=== PATIENT | male | born 1960 | race Caucasian/White ===

== ENCOUNTER 2021-08-25 07:30 | Inpatient (IN) ==
[2021-08-25] MEDS ORDERED: NS 100 ML IV 100 ML ONE (09:41)
[2021-08-25] MEDS ORDERED: ANCEF VIAL 1 GRAM ONE (09:41)
[2021-08-25] MEDS ORDERED: LR 1,000 ML IV 1,000 ML IV ONE (09:41)
[2021-08-25 10:10] VITALS: BMI 26.6
[2021-08-25] MEDS ORDERED: BYFAVO INJ IVP ONE (12:25)
[2021-08-25] MEDS ORDERED: NS 500 ML IV 500 ML IV ONE (12:37)
[2021-08-25] MEDS ORDERED: DIPRIVAN VIAL 20 ML ONE (13:03)
[2021-08-25] MEDS ORDERED: FENTANYL VIAL INJ 250 mcg ONE (13:03)
[2021-08-25] MEDS ORDERED: VERSED ONE (13:04)
[2021-08-25] MEDS ORDERED: ZEMURON 100 MG VIAL ONE (13:05)
[2021-08-25] MEDS ORDERED: ROBINUL ONE (13:06)
[2021-08-25] MEDS ORDERED: NEO-SYNEPHRINE INJ ONE (13:18)
[2021-08-25] MEDS ORDERED: HEPARIN SODIUM IN D5W 25,000 UNITS/500 ML BAG ONE (13:22)
[2021-08-25] MEDS ORDERED: NS 1,000 ML IV 1,000 ML ONE ×2 (13:45→18:19)
[2021-08-25] MEDS ORDERED: LTA KIT LIDOCAINE 4% ONE (13:46)
[2021-08-25] MEDS ORDERED: XYLOCAINE 2 % (PLAIN) ONE (13:46)
[2021-08-25] MEDS ORDERED: ULTANE GAS IN ONE (13:46)
[2021-08-25] MEDS ORDERED: AMIDATE INJ 40 MG VIAL ONE (13:55)
[2021-08-25] MEDS ORDERED: HEPARIN SODIUM INJ 5000 UNITS ONE (14:30)
[2021-08-25] MEDS ORDERED: BRIDION ONE (14:58)
[2021-08-25] MEDS ORDERED: PROTAMINE SULFATE 50 MG VIAL ONE (15:21)
[2021-08-25] MEDS ORDERED: DILAUDID INJ ONE ×3 (16:05→17:23)
--- NOTE | 2021-08-25 16:10 | OR.IMMED ---
IMMEDIATE POST-OP NOTE Immediate Post-Op Note Pre-Op Diagnosis: occluded right ICA, > 70 % stenosis of left ICA Post-Op Diagnosis: same Procedure: left carotid endarterectomy and patch angioplasty Description of Procedure: see operative summary Surgeon/Cafeteria Or Lunchroom Checker: Mile Specimens Removed: comfort Estimated Blood Loss: 250 cc Complications: none Progress Notes: To PACU, neurologically intact , Will be in ICU tonight Condition: Stable Final Diagnosis: as above
[2021-08-25] MEDS ORDERED: NITROSTAT SL PRN (16:13)
[2021-08-25] MEDS ORDERED: DILAUDID INJ IVP PRN ×2 (16:18→16:37)
[2021-08-25] MEDS ORDERED: PERCOCET TAB 5/325 MG PO PRN (16:18)
[2021-08-25] MEDS ORDERED: BARHEMSYS INJ IVP PRN (16:37)
[2021-08-25] MEDS ORDERED: ZOFRAN INJ 4 MG VIAL IVP PRN ×2 (16:37→21:00)
[2021-08-25] MEDS ORDERED: PHENERGAN INJ 25 MG IM PRN (16:37)
[2021-08-25] MEDS ORDERED: BENADRYL INJ 50 MG VIAL IVP PRN (16:37)
[2021-08-25] MEDS ORDERED: REGLAN INJ 10 MG VIAL IVP PRN (16:37)
--- NOTE | 2021-08-25 16:57 | DR.UPDATE ---
H&P Update History and Physical Update: History and Physical reviewed and patient examined. Changes noted: NO Yes with the following:arterial line for carotid endarterectomy H&P Reviewed: Yes Patient was examined?: Yes Procedures (ALL) - Arterial Line Consent obtained: verbal consent Time out performed: Yes Size(gauge): 20 Technique used: guided wire technique Post-procedure: dry sterile dressing placed Patient tolerated procedure: Yes Site: Left, radial
[2021-08-25] MEDS ORDERED: DILAUDID INJ IVP ONE (17:23)
[2021-08-25] MEDS ORDERED: NS 1,000 ML IV 1,000 ML IV ONE (18:20)
[2021-08-25] MEDS ORDERED: DOPAMINE IV PREMIX 400 MG/250 ML 400 MG/250 ML BAG IV PRN (19:19)
[2021-08-25] MEDS ORDERED: DOPAMINE IV PREMIX 400 MG/250 ML 400 MG/250 ML BAG IV ONE (19:21)
[2021-08-25] MEDS: LR 1,000 ML IV 1,000 ML IV SCH (19:25)
[2021-08-25] MEDS: XANAX PO PRN (19:44)
[2021-08-25] MEDS: SOMA TAB 350 MG PO SCH ×2 (20:55→22:20)
[2021-08-25] MEDS: COREG TAB 6.25 MG PO SCH (20:55)
[2021-08-25] MEDS: DESYREL PO SCH ×2 (20:55→22:20)
[2021-08-25] MEDS ORDERED: CRESTOR TAB 10 MG PO SCH (21:00)
[2021-08-25] MEDS: LOVENOX INJ 40 MG SYR SC SCH (21:33)
[2021-08-26] MEDS: LR 1,000 ML IV 1,000 ML IV SCH ×3 (02:40→05:24)
[2021-08-26] MEDS ORDERED: ULTRAM PO PRN (07:45)
[2021-08-26] MEDS ORDERED: ULTRAM ONE (07:49)
[2021-08-26] MEDS: XANAX PO PRN (08:06)
[2021-08-26] MEDS ORDERED: MOBIC TAB 15 MG PO SCH (09:00)
[2021-08-26] MEDS ORDERED: PROTONIX TAB 40 MG PO SCH (09:00)
[2021-08-26] MEDS ORDERED: PLAVIX PO SCH (09:00)
[2021-08-26] MEDS ORDERED: BENICAR TAB 40 MG PO SCH (09:00)
[2021-08-26] MEDS ORDERED: ALDACTONE TAB 25 MG PO SCH (09:00)
[2021-08-26] MEDS ORDERED: ISOSORBIDE MONONITRATE ER 24-HR PO SCH (09:00)
[2021-08-26] MEDS ORDERED: TRICOR TAB 160 MG PO SCH (09:00)
--- NOTE | 2021-08-26 09:32 | W.DIS.FURT ---
Summary of Discharge Discharge Summary of Date Date of Exam: 08/26/21 Admission Date Date of Admission: 08/25/21 Admission Diagnosis Hospital Course: This 61 year old male diagnosed with completely occluded right internal carotid artery and greater than 70% stenosis of the left internal carotid artery. He had a history of a mechanical aortic valve and underwent transition from po Coumadin to Sub-Q Lovenox at home. He underwent uncomplicated left carotid endarterectomy with patch angioplasty. He had some hypotension which responded to IV dopamine drip and is now resolved and off any type of pressure agent. He is neurologically intact . The incision is clean and dry. He will be discharged home on all his usual home medications including Plavix and Coumadin. He will be given Tramadol 50 mg, 1 po q 6 hr PRN pain , #30 for pain. He will f/u with Dr. Treadwell in one week. Vital Signs: Vital Signs (72 hours) 08/25/21 09:53 08/25/21 10:12 08/25/21 16:05 Temperature 97.0 F L 97.5 F L Pulse Rate 59 L 60 Respiratory Rate 18 18 Blood Pressure 138/63 97/55 O2 Sat by Pulse Oximetry 96 96 Oxygen Delivery Method Room Air Room Air Aerosol Face Tent Oxygen Flow Rate FIO2% 08/25/21 16:10 08/25/21 16:15 08/25/21 16:20 Temperature Pulse Rate 60 55 L 55 L Respiratory Rate 20 20 20 Blood Pressure 136/56 151/45 148/64 O2 Sat by Pulse Oximetry 96 96 96 Oxygen Delivery Method Aerosol Face Tent Aerosol Face Tent Aerosol Face Tent Oxygen Flow Rate FIO2% 08/25/21 16:25 08/25/21 16:30 08/25/21 16:08 Temperature Pulse Rate 48 L 50 L Respiratory Rate 20 18 18 Blood Pressure 145/65 168/50 O2 Sat by Pulse Oximetry 96 100 Oxygen Delivery Method Aerosol Face Tent Nasal Cannula Oxygen Flow Rate FIO2% 08/25/21 16:32 08/25/21 16:35 08/25/21 16:40 Temperature Pulse Rate 49 L 51 L Respiratory Rate 18 18 18 Blood Pressure 145/60 166/52 O2 Sat by Pulse Oximetry 100 99 Oxygen Delivery Method Nasal Cannula Nasal Cannula Oxygen Flow Rate FIO2% 08/25/21 17:02 08/25/21 16:51 08/25/21 16:53 Temperature Pulse Rate 48 L Respiratory Rate 18 Blood Pressure 129/63 O2 Sat by Pulse Oximetry Oxygen Delivery Method Oxygen Flow Rate FIO2% 08/25/21 16:53 08/25/21 16:58 08/25/21 16:58 Temperature Pulse Rate 49 L 47 L Respiratory Rate 18 Blood Pressure 174/77 O2 Sat by Pulse Oximetry 100 Oxygen Delivery Method Oxygen Flow Rate FIO2% 08/25/21 17:00 08/25/21 17:00 08/25/21 17:15 Temperature Pulse Rate 49 L Respiratory Rate 22 Blood Pressure 169/72 157/70 O2 Sat by Pulse Oximetry 100 Oxygen Delivery Method Oxygen Flow Rate FIO2% 08/25/21 17:15 08/25/21 17:25 08/25/21 16:50 Temperature Pulse Rate 46 L Respiratory Rate 19 20 Blood Pressure O2 Sat by Pulse Oximetry 100 Oxygen Delivery Method Nasal Cannula Oxygen Flow Rate FIO2% 08/25/21 17:55 08/25/21 17:30 08/25/21 17:31 Temperature Pulse Rate 49 L Respiratory Rate 18 19 Blood Pressure 122/54 O2 Sat by Pulse Oximetry 100 Oxygen Delivery Method Oxygen Flow Rate FIO2% 08/25/21 17:31 08/25/21 17:45 08/25/21 17:46 Temperature Pulse Rate 49 L 41 L Respiratory Rate 28 H 10 L Blood Pressure 103/49 O2 Sat by Pulse Oximetry 100 99 Oxygen Delivery Method Oxygen Flow Rate FIO2% 08/25/21 17:46 08/25/21 18:00 08/25/21 18:00 Temperature Pulse Rate 51 L 44 L Respiratory Rate 11 L 0 L Blood Pressure 89/47 O2 Sat by Pulse Oximetry 100 94 L Oxygen Delivery Method Oxygen Flow Rate FIO2% 08/25/21 18:07 08/25/21 18:07 08/25/21 18:15 Temperature Pulse Rate 53 L Respiratory Rate 16 Blood Pressure 117/55 80/43 O2 Sat by Pulse Oximetry 97 Oxygen Delivery Method Oxygen Flow Rate FIO2% 08/25/21 18:15 08/25/21 18:30 08/25/21 18:30 Temperature Pulse Rate 49 L 51 L Respiratory Rate 10 L 12 Blood Pressure 70/32 O2 Sat by Pulse Oximetry 94 L 94 L Oxygen Delivery Method Oxygen Flow Rate FIO2% 08/25/21 20:43 08/25/21 20:15 08/25/21 20:20 Temperature Pulse Rate 55 L Respiratory Rate 10 L Blood Pressure 103/52 O2 Sat by Pulse Oximetry 93 L Oxygen Delivery Method Nasal Cannula Oxygen Flow Rate 3 FIO2% 32 08/25/21 20:20 08/25/21 20:25 08/25/21 20:25 Temperature Pulse Rate 58 L Respiratory Rate 14 Blood Pressure 122/60 116/54 O2 Sat by Pulse Oximetry 96 Oxygen Delivery Method Oxygen Flow Rate FIO2% 08/25/21 20:30 08/25/21 20:31 08/25/21 20:31 Temperature Pulse Rate 59 L 50 L Respiratory Rate 13 9 L Blood Pressure 127/61 O2 Sat by Pulse Oximetry 96 95 Oxygen Delivery Method Oxygen Flow Rate FIO2% 08/25/21 20:35 08/25/21 20:35 08/25/21 20:41 Temperature Pulse Rate 52 L 49 L Respiratory Rate 15 12 Blood Pressure 141/62 O2 Sat by Pulse Oximetry 97 89 L Oxygen Delivery Method Oxygen Flow Rate FIO2% 08/25/21 20:41 08/25/21 20:46 08/25/21 20:46 Temperature Pulse Rate 45 L Respiratory Rate 15 Blood Pressure 148/62 157/63 O2 Sat by Pulse Oximetry 92 L Oxygen Delivery Method Oxygen Flow Rate FIO2% 08/25/21 20:51 08/25/21 20:51 08/25/21 20:56 Temperature Pulse Rate 51 L Respiratory Rate 12 Blood Pressure 122/56 138/65 O2 Sat by Pulse Oximetry 86 L Oxygen Delivery Method Oxygen Flow Rate FIO2% 08/25/21 20:56 08/25/21 21:00 08/25/21 21:01 Temperature Pulse Rate 48 L 48 L Respiratory Rate 21 23 Blood Pressure 121/54 O2 Sat by Pulse Oximetry 93 L 93 L Oxygen Delivery Method Oxygen Flow Rate FIO2% 08/25/21 21:01 08/25/21 21:05 08/25/21 21:05 Temperature Pulse Rate 57 L 62 Respiratory Rate 17 37 H Blood Pressure 119/58 O2 Sat by Pulse Oximetry 97 96 Oxygen Delivery Method Oxygen Flow Rate FIO2% 08/25/21 21:11 08/25/21 21:11 08/25/21 21:15 Temperature Pulse Rate 52 L 45 L Respiratory Rate 13 11 L Blood Pressure 110/55 O2 Sat by Pulse Oximetry 86 L 91 L Oxygen Delivery Method Oxygen Flow Rate FIO2% 08/25/21 21:15 08/25/21 21:21 08/25/21 21:21 Temperature Pulse Rate 45 L Respiratory Rate 18 Blood Pressure 118/58 124/56 O2 Sat by Pulse Oximetry 93 L Oxygen Delivery Method Oxygen Flow Rate FIO2% 08/25/21 21:26 08/25/21 21:26 08/25/21 21:30 Temperature Pulse Rate 47 L Respiratory Rate 12 Blood Pressure 114/56 132/60 O2 Sat by Pulse Oximetry 90 L Oxygen Delivery Method Oxygen Flow Rate FIO2% 08/25/21 21:30 08/25/21 21:35 08/25/21 21:35 Temperature Pulse Rate 62 56 L Respiratory Rate 8 L 8 L Blood Pressure 148/66 O2 Sat by Pulse Oximetry 93 L 99 Oxygen Delivery Method Oxygen Flow Rate FIO2% 08/25/21 21:41 08/25/21 21:41 08/25/21 21:46 Temperature Pulse Rate 45 L 42 L Respiratory Rate 24 10 L Blood Pressure 122/58 O2 Sat by Pulse Oximetry 100 93 L Oxygen Delivery Method Oxygen Flow Rate FIO2% 08/25/21 21:46 08/25/21 21:51 08/25/21 21:51 Temperature Pulse Rate 45 L Respiratory Rate 10 L Blood Pressure 104/52 130/59 O2 Sat by Pulse Oximetry 93 L Oxygen Delivery Method Oxygen Flow Rate FIO2% 08/25/21 21:55 08/25/21 21:55 08/25/21 22:00 Temperature Pulse Rate 54 L 55 L Respiratory Rate 17 12 Blood Pressure 135/55 O2 Sat by Pulse Oximetry 97 92 L Oxygen Delivery Method Oxygen Flow Rate FIO2% 08/25/21 22:01 08/25/21 22:01 08/25/21 22:05 Temperature Pulse Rate 48 L 66 Respiratory Rate 12 38 H Blood Pressure 128/58 O2 Sat by Pulse Oximetry 92 L 92 L Oxygen Delivery Method Oxygen Flow Rate FIO2% 08/25/21 22:05 08/25/21 22:10 08/25/21 22:10 Temperature Pulse Rate 64 Respiratory Rate 21 Blood Pressure 130/97 141/114 O2 Sat by Pulse Oximetry 99 Oxygen Delivery Method Oxygen Flow Rate FIO2% 08/26/21 00:40 08/26/21 00:40 08/26/21 00:45 Temperature Pulse Rate 58 L 59 L Respiratory Rate 14 15 Blood Pressure 106/55 O2 Sat by Pulse Oximetry 92 L 91 L Oxygen Delivery Method Oxygen Flow Rate FIO2% 08/26/21 00:45 08/26/21 00:50 08/26/21 00:50 Temperature Pulse Rate 59 L Respiratory Rate 15 Blood Pressure 98/52 111/56 O2 Sat by Pulse Oximetry 90 L Oxygen Delivery Method Oxygen Flow Rate FIO2% 08/26/21 00:55 08/26/21 00:55 08/26/21 01:00 Temperature Pulse Rate 60 Respiratory Rate 15 Blood Pressure 114/54 113/56 O2 Sat by Pulse Oximetry 90 L Oxygen Delivery Method Oxygen Flow Rate FIO2% 08/26/21 01:00 08/26/21 01:05 08/26/21 01:05 Temperature Pulse Rate 59 L 61 Respiratory Rate 15 14 Blood Pressure 121/56 O2 Sat by Pulse Oximetry 91 L 92 L Oxygen Delivery Method Oxygen Flow Rate FIO2% 08/26/21 01:10 08/26/21 01:10 08/26/21 01:15 Temperature Pulse Rate 60 62 Respiratory Rate 15 15 Blood Pressure 111/53 O2 Sat by Pulse Oximetry 90 L 90 L Oxygen Delivery Method Oxygen Flow Rate FIO2% 08/26/21 01:15 08/26/21 01:20 08/26/21 01:20 Temperature Pulse Rate 62 Respiratory Rate 13 Blood Pressure 107/55 118/56 O2 Sat by Pulse Oximetry 94 L Oxygen Delivery Method Oxygen Flow Rate FIO2% 08/26/21 01:25 08/26/21 01:25 08/26/21 01:30 Temperature Pulse Rate 59 L Respiratory Rate 16 Blood Pressure 110/56 106/57 O2 Sat by Pulse Oximetry 95 Oxygen Delivery Method Oxygen Flow Rate FIO2% 08/26/21 01:30 08/26/21 01:36 08/26/21 01:36 Temperature Pulse Rate 59 L 74 Respiratory Rate 21 28 H Blood Pressure 99/50 O2 Sat by Pulse Oximetry 96 84 L Oxygen Delivery Method Oxygen Flow Rate FIO2% 08/26/21 01:40 08/26/21 01:40 08/26/21 01:45 Temperature Pulse Rate 60 49 L Respiratory Rate 13 16 Blood Pressure 143/63 O2 Sat by Pulse Oximetry 100 98 Oxygen Delivery Method Oxygen Flow Rate FIO2% 08/26/21 01:45 08/26/21 01:50 08/26/21 01:50 Temperature Pulse Rate 49 L Respiratory Rate 14 Blood Pressure 131/59 131/61 O2 Sat by Pulse Oximetry 95 Oxygen Delivery Method Oxygen Flow Rate FIO2% 08/26/21 01:55 08/26/21 01:55 08/26/21 02:00 Temperature Pulse Rate 49 L Respiratory Rate 16 Blood Pressure 142/59 123/58 O2 Sat by Pulse Oximetry 94 L Oxygen Delivery Method Oxygen Flow Rate FIO2% 08/26/21 02:00 08/26/21 02:05 08/26/21 02:05 Temperature Pulse Rate 51 L 53 L Respiratory Rate 18 13 Blood Pressure 113/53 O2 Sat by Pulse Oximetry 94 L 93 L Oxygen Delivery Method Oxygen Flow Rate FIO2% 08/26/21 02:10 08/26/21 02:10 08/26/21 02:15 Temperature Pulse Rate 55 L 48 L Respiratory Rate 17 15 Blood Pressure 111/55 O2 Sat by Pulse Oximetry 94 L 94 L Oxygen Delivery Method Oxygen Flow Rate FIO2% 08/26/21 02:15 08/26/21 02:20 08/26/21 02:20 Temperature Pulse Rate 47 L Respiratory Rate 13 Blood Pressure 109/53 102/51 O2 Sat by Pulse Oximetry 94 L Oxygen Delivery Method Oxygen Flow Rate FIO2% 08/26/21 02:25 08/26/21 02:25 08/26/21 02:30 Temperature Pulse Rate 51 L Respiratory Rate 14 Blood Pressure 102/51 102/53 O2 Sat by Pulse Oximetry 94 L Oxygen Delivery Method Oxygen Flow Rate FIO2% 08/26/21 02:30 08/26/21 02:35 08/26/21 02:35 Temperature Pulse Rate 51 L 49 L Respiratory Rate 16 13 Blood Pressure 108/55 O2 Sat by Pulse Oximetry 93 L 93 L Oxygen Delivery Method Oxygen Flow Rate FIO2% 08/26/21 02:41 08/26/21 02:41 08/25/21 19:00 Temperature Pulse Rate 71 Respiratory Rate 36 H Blood Pressure 104/64 O2 Sat by Pulse Oximetry 80 L Oxygen Delivery Method Nasal Cannula Oxygen Flow Rate FIO2% 08/26/21 02:46 08/26/21 02:46 08/26/21 02:50 Temperature Pulse Rate 54 L Respiratory Rate 16 Blood Pressure 144/60 137/62 O2 Sat by Pulse Oximetry 98 Oxygen Delivery Method Oxygen Flow Rate FIO2% 08/26/21 02:50 08/26/21 02:55 08/26/21 02:55 Temperature Pulse Rate 53 L 53 L Respiratory Rate 17 12 Blood Pressure 127/56 O2 Sat by Pulse Oximetry 95 93 L Oxygen Delivery Method Oxygen Flow Rate FIO2% 08/26/21 03:00 08/26/21 03:00 08/26/21 03:06 Temperature Pulse Rate 50 L 57 L Respiratory Rate 14 20 Blood Pressure 120/53 O2 Sat by Pulse Oximetry 92 L 92 L Oxygen Delivery Method Oxygen Flow Rate FIO2% 08/26/21 03:06 08/26/21 03:10 08/26/21 03:10 Temperature Pulse Rate 55 L Respiratory Rate 15 Blood Pressure 123/58 109/52 O2 Sat by Pulse Oximetry 91 L Oxygen Delivery Method Oxygen Flow Rate FIO2% 08/26/21 03:15 08/26/21 03:15 08/26/21 03:20 Temperature Pulse Rate 54 L 49 L Respiratory Rate 18 11 L Blood Pressure 117/56 O2 Sat by Pulse Oximetry 91 L 92 L Oxygen Delivery Method Oxygen Flow Rate FIO2% 08/26/21 03:20 08/26/21 03:25 08/26/21 03:25 Temperature Pulse Rate 49 L Respiratory Rate 20 Blood Pressure 119/56 125/58 O2 Sat by Pulse Oximetry 94 L Oxygen Delivery Method Oxygen Flow Rate FIO2% 08/26/21 03:30 08/26/21 03:30 08/26/21 03:36 Temperature Pulse Rate 54 L 66 Respiratory Rate 35 H 33 H Blood Pressure 143/62 O2 Sat by Pulse Oximetry 96 96 Oxygen Delivery Method Oxygen Flow Rate FIO2% 08/26/21 03:36 08/26/21 04:00 08/26/21 04:01 Temperature Pulse Rate 50 L Respiratory Rate 32 H Blood Pressure 179/65 137/60 O2 Sat by Pulse Oximetry 95 Oxygen Delivery Method Oxygen Flow Rate FIO2% 08/26/21 04:01 08/26/21 04:30 08/26/21 04:30 Temperature Pulse Rate 53 L 54 L Respiratory Rate 16 25 H Blood Pressure 147/61 O2 Sat by Pulse Oximetry 97 93 L Oxygen Delivery Method Oxygen Flow Rate FIO2% 08/26/21 05:00 08/26/21 05:00 08/26/21 05:30 Temperature Pulse Rate 59 L 57 L Respiratory Rate 26 H Blood Pressure 100/54 O2 Sat by Pulse Oximetry 91 L 94 L Oxygen Delivery Method Oxygen Flow Rate FIO2% 08/26/21 05:30 08/26/21 06:00 08/26/21 06:01 Temperature Pulse Rate 66 56 L Respiratory Rate Blood Pressure 156/67 O2 Sat by Pulse Oximetry 92 L 92 L Oxygen Delivery Method Oxygen Flow Rate FIO2% 08/26/21 06:01 08/26/21 08:06 08/26/21 08:45 Temperature Pulse Rate Respiratory Rate 19 Blood Pressure 117/56 O2 Sat by Pulse Oximetry Oxygen Delivery Method Room Air Oxygen Flow Rate FIO2% Labs: Laboratory Last Values SARS-CoV-2 (PCR) Negative (NEGATIVE) 08/25/21 10:15 Tissue Pathology To follow 08/25/21 14:40 Reason For Visit: ENDARTERECTOMY WITH PATCH Discharge Date Discharge Date: 08/26/21 Discharge Diagnosis All Active Problems (Updated 08/26/21 @ 09:30 by Harry Treadwell) Carotid artery stenosis (Acute) Plan of Treatment: Continue with present treatment and follow up plan. Pt is to keep follow up appointment as instructed and take medications as ordered. Discharge Medications Discharge Medications: lisinopril Adverse Reaction (Verified 08/25/21 09:52) RASH CONTINUE taking the following medications alprazolam 0.5 mg tablet 0.5 mg PO BID 08/25/21 [History] carisoprodol 350 mg tablet 350 mg PO BID 08/25/21 [History] carvedilol 6.25 mg tablet (Coreg) 6.25 mg PO BID 08/25/21 [History] fenofibrate 160 mg tablet 160 mg PO QDAY 08/25/21 [History] ferrous sulfate 325 mg (65 mg iron) tablet (FeroSul) 325 mg PO QDAY 08/25/21 [History] furosemide 40 mg tablet (Lasix) 40 mg PO QDAY 08/25/21 [History] isosorbide mononitrate 60 mg tablet,extended release 24 hr 60 mg PO QAM 08/25/21 [History] meloxicam 15 mg tablet 15 mg PO QDAY 08/25/21 [History] nitroglycerin 0.4 mg sublingual tablet 0.4 mg sublingual Q5M PRN 08/25/21 [History] olmesartan 40 mg tablet 40 mg PO QDAY 08/25/21 [History] pantoprazole 40 mg tablet,delayed release 40 mg PO QDAY 08/25/21 [History] rosuvastatin 20 mg tablet 20 mg PO QDAY 08/25/21 [History] spironolactone 25 mg tablet 25 mg PO QDAY 08/25/21 [History] trazodone 50 mg tablet 150 mg PO QHS 08/25/21 [History] Discharge Plan Discharge Plan Hospital Course: This 61 year old male diagnosed with completely occluded right internal carotid artery and greater than 70% stenosis of the left internal carotid artery. He had a history of a mechanical aortic valve and underwent transition from po Coumadin to Sub-Q Lovenox at home. He underwent uncomplicated left carotid endarterectomy with patch angioplasty. He had some hypotension which responded to IV dopamine drip and is now resolved and off any type of pressure agent. He is neurologically intact . The incision is clean and dry. He will be discharged home on all his usual home medications including Plavix and Coumadin. He will be given Tramadol 50 mg, 1 po q 6 hr PRN pain , #30 for pain. He will f/u with Dr. Treadwell in one week. Patient Disposition: 01 HOME, SELF-CARE Condition: Stable Health Concerns: Post Hospitalization: new medications and changes needed to prevent readmission or further decline. Pt educated and given instructions on all concerns. Care Plan Goals: resume usual activity Plan of Treatment: Continue with present treatment and follow up plan. Pt is to keep follow up appointment as instructed and take medications as ordered. Prescription drug monitoring program results: PDMP reviewed and no concerns identified Prescriptions: No Action trazodone 50 mg Tablet 150 mg PO QHS furosemide [Lasix] 40 mg Tablet 40 mg PO QDAY carvedilol [Coreg] 6.25 mg Tablet 6.25 mg PO BID Rx Instructions: must administer with a meal/food meloxicam 15 mg Tablet 15 mg PO QDAY spironolactone 25 mg Tablet 25 mg PO QDAY isosorbide mononitrate 60 mg Tablet Extended Release 24 Hr 60 mg PO QAM pantoprazole 40 mg Tablet,Delayed Release (Dr/Ec) 40 mg PO QDAY ferrous sulfate [FeroSul] 325 mg (65 mg iron) Tablet 325 mg PO QDAY nitroglycerin 0.4 mg Tablet, Sublingual 0.4 mg SUBLINGUAL Q5M PRN Rx Instructions: do not exceed 3 doses per episode olmesartan 40 mg Tablet 40 mg PO QDAY rosuvastatin 20 mg Tablet 20 mg PO QDAY fenofibrate 160 mg Tablet 160 mg PO QDAY carisoprodol 350 mg Tablet 350 mg PO BID alprazolam 0.5 mg Tablet 0.5 mg PO BID Follow ups/Referrals Follow ups/Referrals: N[facility],None [Primary Care Provider] - 1 WEEK Instructions Stand Alone Forms: Excuse From Work or School, Precautions for COVID19, [facility], Patient Portal, Social Distancing
[2021-08-26] MEDS: COREG TAB 6.25 MG PO SCH (10:32)
[2021-08-26] MEDS: LASIX IVP SCH ×2 (10:33)
[2021-08-26] MEDS: LOVENOX INJ 40 MG SYR SC SCH (10:34)
[2021-08-26] MEDS: SOMA TAB 350 MG PO SCH (10:36)
[2021-08-26 11:42] VITALS: BP 124/68
--- NOTE | 2021-08-28 21:49 | DR.OPNOTE ---
OP NOTE Pre-Op Diagnosis: severe stenosis left ICA, occluded right ICA Post-Op Diagnosis: same Procedure Date Date Of Procedure: 08/25/21 Procedure: PROCEDURE: LEFT CAROTID ENDARTERECTOMY AND PATCH ANGIOPLASTY NARRATIVE : The patient was taken to the operative suite and placed in the supine position. General endotracheal anesthesia was induced. The left neck was extended, prepped and draped in sterile fashion. Time out for the procedure obtained. Incision was made along the anterior border of the sternocleidomastoid muscle with a number 15 knife blade and the platysma divided with electrocautery. Blunt and sharp dissection carried out and the facial vein divided between ties of 3-0 silk. All branches of the left carotid artery were dissected free with vessel loops placed around the common carotid artery, internal carotid artery distal to the the plaque and external carotid artery. A 2-0 silk was placed around the superior thyroid artery . Patient was given 5000 units of Heparin and after three minutes all branches of the artery clamped . They artery was opened with a number 11 knife blade and [place] scissors from the common carotid artery through the plaque into the normal internal carotid artery. A 12 [place] shunt placed distally and proximally and held in position with the vessels loops . [place] dissector used to elevate the plaque Feathering it into the internal carotid artery , dividing it in the carotid artery with Pott's scissors and performing eversion endarterectomy of the external carotid artery . All floating material removed. The intima of the internal carotid artery was tacked down with interrupted 6-0 Prolene suture . An 8 mm by 80 mm Bovine pericardial patch was used to close the arteriotomy of the carotid artery with 6-0 Prolene suture. Prior to completion of the closure the arteriotomy the shunt was removed and the closure completed . Back bleeding allowed through the external carotid artery . Clamp removed from the common carotid artery and finally the internal carotid artery re-establishing flow. There's no active bleeding. Doppler showed good distal flow. Patient was given 30 mg of IV Protomine . Surgicel placed over the patch and watched for 5 minutes. There was no active bleeding. The platysma was closed with running 3-0 Vicryl suture. Skin was closed with running 4-0 Vicryl subcuticular suture .Patient extubated with no neurological deficits and was taken to PACU and then to ICU for completed recovery. . Type of Anesthesia: General Anesthetic w/ETT Findings: as above Specimen/Pathology: plaque Type of Fluids Used:: Lactated Ringers Total Amount of Fluid Infused:: 1800 cc EBL: 250 cc Complications:: none Needle/Sponge Count:: correct Disposition/Condition: Pt. tolerated procedure without difficulty. Extubated in the OR and taken to PACU in stable condition.
== END 2021-08-26 11:27 | disposition home or self-care (01) | DRG 981 ==
LOC: EDUNIT# 07:30 → ICU 09:25
PROVIDERS: ADMIT Surgery; ATTEND Surgery